=== PATIENT | male | born 1990 | race Two or more races ===

== ENCOUNTER 2025-01-14 10:45 | Emergency (ER) | payer OTHER ==
[~2025-01-14] VITALS: Ht 182.9 cm; Wt 124.7 kg
[2025-01-14] MEDS ORDERED: KETOROLAC TROMETHAMINE 60 MG VIAL IM ONE (12:45)
[2025-01-14] MEDS ORDERED: ONDANSETRON HCL 2 MG/ML VIAL IV ONE (12:45)
[2025-01-14] MEDS ORDERED: 0.9 % SODIUM CHLORIDE 1,000 ML IV ONE (12:45)
[2025-01-14] MEDS ORDERED: FAMOTIDINE/PF 20 MG/2 ML VIAL IV ONE (12:45)
[2025-01-14] MEDS ORDERED: DEXAMETHASONE SODIUM PHOSPHATE 4 MG/ML VIAL IM ONE (12:45)
[2025-01-14 13:48] LABS: BASO % 0.2 % (0.1-1.2); EOS # 0.04 (0.04-0.54); EOS % 0.6 % (0.7-7.0); LYMPH # 0.69 (1.18-3.74); LYMPH % 11.0 % (19.3-53.1); MEAN PLATELET VOLUME 9.70 fl (9.4-12.4); MONO # 0.39 (0.24-0.82); MONO % 6.2 % (4.7-12.5); NEUT # 5.07 (1.56-6.13); NEUT % 81.0 % (34.0-71.1); RED CELL DISTRIBUTION WIDTH 12.5 % (11.6-14.4)
[2025-01-14 14:20] LABS: ALT/SGPT 46.0 U/L (12-78); AST/SGOT 17.0 U/L (15-37); BILIRUBIN TOTAL 0.49 mg/dL (0.3-1.2); BUN CREA RATIO 20.0 (7.0-25.0); CREATININE SERUM 1.02 mg/dL (0.70-1.30); GFR 84.64; GLOBULINA 3.7 G/DL (2.4-3.5); GLUCOSE FASTING 93.0 mg/dL (65-100); OSMOLALITY SERUM 280.0 MOSM/KG (275-295)
[2025-01-14 15:36] LABS: COVID-19 AG NEGATIVE (NEGATIVE)
[2025-01-14] MEDS ORDERED: PEPCID AC20 MG PO (16:37)
[2025-01-14] MEDS ORDERED: 8 HOUR PAIN RE650 M1 PO (16:37)
[2025-01-14] MEDS ORDERED: ZITHROMAX200 MG PO (16:37)
== END 2025-01-14 19:02 | disposition home or self-care (01) ==
LOC: ER 10:45
DX: B34.9 Viral infection, unspecified (principal); R11.10 Vomiting, unspecified; Z20.822 Contact with and (suspected) exposure to COVID-19